=== PATIENT | male | born 1995 | race Caucasian/White ===

== ENCOUNTER 2018-04-24 12:19 | Emergency (ER) | payer OTHER ==
[~2018-04-24] VITALS: Wt 72.2 kg
[2018-04-24 12:21] VITALS: BP 153/70; PULSE 71; RESP 17
--- NOTE | 2018-04-24 14:58 | ERD ---
ER Documentation Chief Complaint Chief Complaint RIGHT LOWER LEG DISCOMFORT X1 DAY HPI This is a 23-year-old male who presents with his mother with concern for superficial swelling to right lateral leg. Had surgery to correct a broken tibia-fibula last year due to soccer injury, plate and screws in place. Says he has had this lump over the superior aspect of his incision scar for 1 year but yesterday it started to feel funny and felt like it was getting larger. No recent trauma, no difficulty walking, states that the discomfort is 5 out of 10 and feels like something is "poking out. " ROS All systems reviewed and are negative except as per history of present illness. Allergies Allergies: Coded Allergies: amoxicillin (Verified Allergy, Unknown, 04/24/18) PMhx/Soc Medical and Surgical Hx: pt denies Medical Hx FmHx Family History: No diabetes, No coronary disease, No other Physical Exam Vitals Vital Signs Date Temp Pulse Resp B/P (MAP) Pulse Ox O2 O2 Flow FiO2 Time Delivery Rate 04/24/18 98.2 71 17 153/70 100 12:21 (97) Physical Exam Const: No acute distress Head: Atraumatic Eyes: Normal Conjunctiva ENT: Normal External Ears, Nose and Mouth. Neck: Full range of motion. No meningismus. Resp: Clear to auscultation bilaterally Cardio: Regular rate and rhythm, no murmurs Abd: Soft, non tender, non distended. Normal bowel sounds Skin: No petechiae or rashes MS: Moves all extremities equally, no brusing, no swelling, no paresthesias. RLL: 1 cm x 1 cm cyst like mass palpated at superior aspect of scar, non mobile, no redness, normothermic Ext: No cyanosis, or edema Neur: Awake and alert Psych: Normal Mood and Affect Procedures/MDM This 83-year-old male patient presents in no acute distress with concern over area of swelling at right lateral lower leg. Denies trauma and is ambulatory with steady gait. Differential diagnosis includes displacement of hardware, hematoma, cyst, retained foreign body or stitch, blood clot. Patient is not complaining of any pain. Only an increased discomfort with touching. EXAM RESULTS: PROCEDURE: Ultrasound extremity non-vascular. CLINICAL INDICATION: Swelling to the lateral aspect of the right lower leg, abscess?. TECHNIQUE: Targeted sonographic evaluation of the area of clinical interest in the right lateral ankle region was performed using a high-frequency transducer using valerio scale and color Doppler techniques. COMPARISON: None. FINDINGS: Targeted sonographic evaluation of the right lateral ankle in the symptomatic region as indicated by the patient demonstrates the feathery morphology of the peroneal muscles and underlying fibula. A discrete solid 10 x 5 X 14 oblong heterogeneous focus is identified parallel orientation to the tissue planes and abutting the deeper muscle. No peripheral or central vascularity identified on Doppler ultrasound IMPRESSION: 14 x 10 x 5 mm solid heterogeneous focus overlying the peroneal musculature of the symptomatic region of the right lateral ventricle. No definite vascularity identified. Differential considerations include small focus of hematoma or foreign body granuloma, though neoplastic etiology is not entirely excluded at this time. Management approaches can be made on the clinical basis including treatment and close followup ultrasound to monitor interval evolution, further characterization with contrast enhanced MR, or resection. RPTAT: AA Physician Isabell Ortega Date Time Electronically viewed and signed by Physician Isabell Ortega on 04/24/2018 14:42 PROCEDURE: XR Tibia and Fibula. CLINICAL INDICATION: pain- hardware check, lump TECHNIQUE: Two views of the right tibia and fibula are available for review. COMPARISON: None available FINDINGS: Plate and screw fixations are identified along the distal fibula to the lateral malleolus. No radiographic evidence of kleber hardware lucency to suggest loosening. There are well corticated osseous fragments adjacent to the medial malleolus. There is mild soft tissue edema overlying the distal shaft of the fibula, also indicated as the symptomatic region by the technologist. Orthopedic hardware appears intact without fracture. IMPRESSION: 1. Status post plate and screw fixations of the right distal fibula. No radiographic evidence of loosening or fracture of the hardware. 2. Mild soft tissue swelling overlying the distal fibula. 3. Well corticated osseous fragments adjacent to the medial malleolus, likely due to chronic avulsion. RPTAT: EE Physician Isabell Ortega Date Time Electronically viewed and signed by Physician Isabell Ortega on 04/24/2018 14:29 X-ray and ultrasound results are negative for fracture, foreign body, or abscess. Patient will follow-up with Indira Mello for further evaluation Patient and mother verbalized understanding of signs and symptoms of worsening of condition and when to return to the emergency room. Departure Diagnosis: Primary Impression: Pain of right leg Condition: Stable Patient Instructions: Contusion, Soft Tissue (Child) Referrals: VIN MELLO MD Additional Instructions: Apply warm moist heat to area 2-3 times per day Follow-up with orthopedic doctor, bring radiology results with you to follow-up visit Return to emergency room with swelling to lower extremity, increased pain, inability to ambulate, fever JOO WEI NP Apr 24, 2018 14:58
== END 2018-04-24 15:10 | disposition home or self-care (01) ==
LOC: FTE 12:19
DX: M79.604 Pain in right leg (principal)
CPT/HCPCS: 73590; 76536; Z7502